=== PATIENT | male | born 1950 | race Caucasian/White ===

== ENCOUNTER → 2017-11-13 | Outpatient (CLI) | payer MEDICARE, OTHER ==
[2017-11-13 16:33] LABS: Appearance,Urine Clear (Clear); Bilirubin,Urine Negative (Negative); Blood,Urine Negative (Negative); Color,Urine Yellow; Glucose,Urine (UA) Negative (Negative); Ketones,Urine Negative (Negative); Leukocyte Esterase,Urine Negative (Negative); Protein,Urine Negative (Negative); Specific Gravity,Urine 1.012 (1.001-1.035); Urobilinogen,Urine <2.0 mg/dL (<2.0)
[2017-11-13 16:34] LABS: Anion Gap 7 mmol/L; Blood Urea Nitrogen 13 mg/dL (9-20); Calcium 9.7 mg/dL (8.4-10.2); Carbon Dioxide 29 mmol/L (22-30); Chloride 103 mmol/L (98-107); Glucose 98 mg/dL (74-99); Sodium 139 mmol/L (137-145)
[2017-11-13 16:50] LABS: Basophils % (A) 1 %; Eosinophils # (A) 0.3 k/uL (0-0.7); Eosinophils % (A) 5 %; HCT 42.4 % (39.0-53.0); HGB 14.3 gm/dL (13.0-17.5); Lymphocytes # (A) 1.6 k/uL (1.0-4.8); Lymphocytes % (A) 28 %; MCH 31.7 pg (25.0-35.0); MCHC 33.7 g/dL (31.0-37.0); MCV 94.2 fL (80.0-100.0); Mean Platelet Volume 7.3; Monocytes # (A) 0.5 k/uL (0-1.0); Monocytes % (A) 9 %; Neutrophils # (A) 3.2 k/uL (1.3-7.7); Neutrophils % (A) 55 %; Platelet Count 301 k/uL (150-450); WBC 5.7 k/uL (3.8-10.6)
== END | disposition home or self-care (01) ==
LOC: LABPAT 15:47
PROVIDERS: ATTEND Urology
DX: Z01.812 Encounter for preprocedural laboratory examination (principal); Z01.810 Encounter for preprocedural cardiovascular examination; E78.5 Hyperlipidemia, unspecified; C61 Malignant neoplasm of prostate; R31.29 Other microscopic hematuria; R53.83 Other fatigue
CPT/HCPCS: 36415; 80048; 81003; 85025; 86850; 86900; 86901; 87086; 93005

== ENCOUNTER 2017-11-20 10:32 | Day surgery (SDC) | payer MEDICARE, OTHER ==
[2017-11-18 15:18] VITALS: BMI 23.0
[~2017-11-20 10:32] MED LIST: DEXAMETHASONE SOD PHOSPHATE 10 MG/ML 1 ML VIAL IV ONE; HEPARIN SODIUM,PORCINE 5,000 UNIT/ML 1 ML VIAL SQ ONE; HYDROmorphone 0.5 MG/0.5 ML SYRINGE IVP PRN; ONDANSETRON 4 MG/2 ML VIAL IVP ONE; ceFAZolin IN SWFI 2 GM/20 ML SYRINGE IVP ONE
[2017-11-20] MEDS ORDERED: LIDOCAINE 1% 20 ML VIAL (10MG/ML) FOR IV START INTRADERMA ONE (11:15)
[2017-11-20] MEDS: LACTATED RINGERS 1,000 ML IV SCH ×2 (11:19→11:20)
[2017-11-20] MEDS ORDERED: MIDAZOLAM 2 MG/2 ML VIAL IV ONE (11:23)
[2017-11-20] MEDS ORDERED: GLYCOPYRROLATE 0.2 MG/ML 2 ML VIAL ONE (12:33)
[2017-11-20] MEDS ORDERED: MIDAZOLAM 2 MG/2 ML VIAL ONE (12:33)
[2017-11-20] MEDS ORDERED: HYDROmorphone (PF) 1 MG/ML ONE (12:33)
[2017-11-20] MEDS ORDERED: SUCCINYLCHOLINE CHLORIDE 100 MG/5 ML SYR IV ONE (12:33)
[2017-11-20] MEDS ORDERED: fentaNYL (PF) 50 MCG/ML 2 ML AMP ONE (12:33)
[2017-11-20] MEDS ORDERED: NEOSTIGMINE 1 MG/ML 10 ML VIAL ONE (12:33)
[2017-11-20] MEDS ORDERED: LIDOCAINE 1% INJ 10MG/ML (20 ML MDV) ONE (12:33)
[2017-11-20] MEDS ORDERED: PROPOFOL 10 MG/ML 20 ML VIAL IV ONE (12:33)
[2017-11-20] MEDS ORDERED: ROCURONIUM BROMIDE 10 MG/ML 10 ML VIAL IV ONE (12:33)
[2017-11-20] MEDS ORDERED: ePHEDrine SULFATE/0.9% NACL/PF 50 MG/5 ML SYRINGE IV ONE (12:33)
[2017-11-20] MEDS ORDERED: BUPIVACAINE (PF) 0.5% 30 ML VIAL SQ ONE (12:58)
[2017-11-20] MEDS ORDERED: LACTATED RINGERS 1,000 ML IV ONE (15:59)
--- NOTE | 2017-11-20 16:41 | P.OP ---
Date of Procedure: 11/20/17 Preoperative Diagnosis: Adenocarcinoma of the Prostate, Clinical Stage [id number] Postoperative Diagnosis: Same Procedure(s) Performed: Right Nerve Sparing Robotic-assisted Laparoscopic Prostatectomy (RALP) with Bilateral Pelvic Lymphadenectomy Anesthesia: DORITA Surgeon: Handy Sarmiento Estimated Blood Loss (ml): 100 IV fluids (ml): 1,700 Pathology: other (Prostate, seminal vesicles, bilateral pelvic lymph nodes) Condition: stable Disposition: PACU Indications for Procedure: The patient is a 67-year-old male with recently diagnosed intermediate risk prostate cancer. All 6 left-sided biopsies showed [place] 7 adenocarcinoma, and one right-sided biopsy showed a small focus of [place] 6 adenocarcinoma. I had a lengthy discussion with the patient, and he has elected to undergo a right nerve-sparing RALP with (B) PLND. He understands the likelihood of postoperative erectile dysfunction despite preservation of the right neurovascular bundle. He also understands the possible need for adjuvant therapy. Operative Findings: Extensive pelvic scarring. Description of Procedure: The patient was taken in the operating room and placed in the dorsal lithotomy position, with his legs supported in Benson stirrups. He was carefully positioned on a beanbag for stability. The abdomen and external genitalia were prepped and draped sterilely. A Meier catheter was inserted. The Veress needle was passed through the anterior abdominal wall immediately cephalad to the umbilicus, and insufflation was performed to a pressure of 20 mm Hg. Once insufflation was performed, the Veress needle was removed and a supraumbilical incision was made, through which a 12 mm camera port was placed. Under camera guidance, 3 8 mm robotic ports were placed, 2 on the left and one on the right. An additional 12 mm port was placed on the right lateral side for use as an assistant professor of geography port. A 5 mm port was placed to the right of the camera port for suction. The patient was placed in Trendelenburg position, and docking was then performed to the da Carlos system utilizing a 4-arm approach. The abdomen was examined. An adhesion to the right anterior abdominal wall was taken down. The sigmoid colon was mobilized out of the pelvis. Pelvic adhesions with loops of small bowel were lysed, allowing mobilization of the small bowel out of the pelvis. Loops of small bowel were The peritoneum was incised lateral to the medial umbilical ligaments bilaterally, exposing the pubis. The peritoneum was then incised across the midline, allowing the bladder flap to be taken down. Significant scarring was noted, particularly on the right side, making the perivesical plane somewhat difficult to delineate. The endopelvic fascia was opened bilaterally, and muscular attachments from the urogenital diaphragm were swept away from the prostate. Bilateral pelvic lymphadenectomies were performed in the standard fashion. The peritoneal incisions were extended in a cephalad direction, and the vas deferens were divided bilaterally. Margins of dissection were the bifurcation of the iliac vessels proximally, the circumflex iliac vein distally, the external iliac artery laterally, and the obturator nerve medially. A combination of sharp and blunt dissection was used. Care was taken to avoid any neurovascular injury, and the use of monopolar electrocautery was avoided immediately adjacent to neurovascular structures. The lymphatic package was clipped distally. No enlarged lymph nodes were encountered. There were no complications. The vesical neck was incised transversely, down to the lumen. The Meier catheter was brought out through the anterior vesical neck incision and was used for traction. The posterior aspect of the vesical neck was incised, such that the full-thickness of the vesical neck was divided. The anterior layer of the Denonvilliers fascia was incised, exposing the vas deferens. Each were isolated and divided. Next, each of the seminal vesicles were dissected away from adjacent tissues, and vascular attachments were cauterized and divided. The posterior leaf of Denonvilliers fascia was incised transversely, allowing entry into the plane between the prostate and rectum. With lateral spreading, this plane was developed down to the apex. This exposed the lateral vascular pedicles bilaterally. These were clipped and divided in an antegrade fashion, down to the apex. The use of electrocautery was avoided to prevent thermal damage to the nerves. On the right side, the plane of dissection was immediately adjacent to the prostate to preserve the neurovascular bundle. On the left side, a plane of dissection were prostate in view of the risk of extraprostatic disease. The remaining apical attachments were swept away from the prostate. The dorsal venous complex was incised, as well as periurethral tissue. At this point, only the urethra remained intact. This was transected immediately distal to the prostatic apex using cold scissors. A small amount of rectourethralis muscle was divided, and the specimen was placed within a specimen bag along with the pelvic lymph nodes. The dorsal venous complex was sutured using a V-Loc suture in a running fashion. A second V-Loc suture was then used to place the Jean Claude stitch, incorporating the rhabdosphincter and the edge of Denonvilliers fascia. This allowed the bladder to be taken down to the urethra, leaving the vesical neck immediately adjacent to the urethra. The vesicourethral anastomosis was then performed using a V-Loc suture in a running fashion. After completing the anastomosis, an 18-Mongolian Meier catheter was placed and approximately 150 mL of 0.9 normal saline were instilled into the bladder. No extravasation of irrigant from the vesicourethral anastomosis was noted. Hemostasis was noted at this time to be very good, and it was thus felt that a drain was unnecessary. A small amount of oozing was noted from the vascular pedicles, so Surgicel was placed bilaterally. The patient was returned to the supine position. Undocking was performed, and the specimen bag sutures were passed through the camera port. After removing all the ports and allowing all of the CO2 to be released from the peritoneal cavity, the camera port incision was enlarged to allow removal of the surgical specimen. The fascia of this incision was then closed using 0 Vicryl suture in an interrupted [id number] fashion. Each of the skin incisions were then closed using 4-0 Monocryl suture in a subcuticular fashion. Marcaine was injected at each of the incision sites. Dermabond was applied to each incision. The Meier catheter was connected to gravity drainage. All sponge and needle counts were correct. The patient tolerated the procedure well was taken to the recovery room in stable condition.
[2017-11-20] MEDS ORDERED: MAG HYDROX/AL HYDROX/SIMETH 30 ML CUP PO PRN (16:42)
[2017-11-20] MEDS ORDERED: KETOROLAC 30 MG/ML 1 ML VIAL IVP PRN (16:42)
[2017-11-20] MEDS ORDERED: ACETAMINOPHEN TAB 325 MG TAB PO PRN (16:42)
[2017-11-20] MEDS ORDERED: ONDANSETRON 4 MG/2 ML VIAL IVP PRN (16:42)
[2017-11-20] MEDS ORDERED: LORATADINE-PSEUDOEPH 5-120 MG 1 EACH TAB.ER.12H PO PRN (16:42)
[2017-11-20] MEDS ORDERED: MORPHINE SULFATE 4 MG/ML SYRINGE IVP PRN (16:42)
[2017-11-20] MEDS ORDERED: FLUTICASONE 50MCG/SPRAY NASAL 16GM EA NOSTRIL PRN (16:42)
[2017-11-20] MEDS ORDERED: PSEUDOEPHEDRINE 30 MG TAB PO PRN (16:42)
[2017-11-20 18:04] VITALS: RESP 16
[2017-11-20] MEDS ORDERED: ATORVASTATIN 20 MG TAB PO SCH (21:00)
[2017-11-20] MEDS: DEXTROSE 5%-0.45% NACL 1,000 ML IV SCH ×2 (22:05→22:43)
[2017-11-20] MEDS: HEPARIN SODIUM,PORCINE 5,000 UNIT/ML 1 ML VIAL SQ SCH (22:42)
[2017-11-21] MEDS: DEXTROSE 5%-0.45% NACL 1,000 ML IV SCH ×2 (00:39→14:07)
[2017-11-21] MEDS: HEPARIN SODIUM,PORCINE 5,000 UNIT/ML 1 ML VIAL SQ SCH (08:22)
[2017-11-21] MEDS ORDERED: HYDROcodone/APAP 5-325MG 1 EACH TAB PO PRN ×2 (12:28)
--- NOTE | 2017-11-21 13:05 | P.DS ---
Providers Expected date of discharge: 11/21/17 Attending physician: Handy Sarmiento Primary care physician: Checo Romero MD Hospital Course: On the day of admission, the patient underwent an uncomplicated robotic- assisted llaparoscopic prostatectomy (RALP) and pelvic lymphadenectomy. The right neurovascular bundle was preserved. The postoperative course was unremarkable. He remained afebrile with stable vital signs. The Meier catheter drained well. On the first postoperative day, the abdomen was soft and the incisions were clean and dry. He ambulated and tolerated diet. Procedures: RALP with pelvic lymphadenectomy on 11/20/2017. Patient Condition at Discharge: Good Plan - Discharge Summary New Discharge Prescriptions: New Ciprofloxacin HCl [Cipro] 250 mg PO Q12HR #10 tablet Hydrocodone/Acetaminophen [[place] 5-325] 1 - 2 each PO Q4HR PRN #20 tab PRN Reason: Pain No Action Loratadine-Pseudoeph 5-120 mg [Claritin-D 12 HR] 1 each PO Q12HR PRN PRN Reason: Allergy Symptoms Simvastatin [Zocor] 40 mg PO HS Aspirin [Adult Low Dose Aspirin EC] 81 mg PO DAILY Ubidecarenone [Co Q-10] 200 mg PO DAILY Multivitamins, Thera [Multivitamin (formulary)] 1 tab PO DAILY Triamcinolone Acetonide [Nasacort] 1 spray EA NOSTRIL DAILY PRN PRN Reason: Allergy Symptoms Pseudoephedrine [Sudafed] 30 mg PO DIRECTED PRN PRN Reason: Allergy Symptoms Discharge Medication List Aspirin [Adult Low Dose Aspirin EC] 81 mg PO DAILY 11/18/17 [History] Loratadine-Pseudoeph 5-120 mg [Claritin-D 12 HR] 1 each PO Q12HR PRN 11/18/17 [ History] Multivitamins, Thera [Multivitamin (formulary)] 1 tab PO DAILY 11/18/17 [History ] Pseudoephedrine [Sudafed] 30 mg PO DIRECTED PRN 11/18/17 [History] Simvastatin [Zocor] 40 mg PO HS 11/18/17 [History] Triamcinolone Acetonide [Nasacort] 1 spray EA NOSTRIL DAILY PRN 11/18/17 [ History] Ubidecarenone [Co Q-10] 200 mg PO DAILY 03/05/18 [History] Ciprofloxacin HCl [Cipro] 250 mg PO Q12HR #10 tablet 11/21/17 [Rx] Hydrocodone/Acetaminophen [[place] 5-325] 1 - 2 each PO Q4HR PRN #20 tab 11/21/17 [Rx] Follow up Appointment(s)/Referral(s): Handy Sarmiento MD [STAFF PHYSICIAN] - 11/27/17 Activity/Diet/Wound Care/Special Instructions: Discharge home with Meier. Please provide patient with leg bag and overnight bag, and instruct patient to use both. Okay to shower. Diet as tolerated. No lifting, driving, or strenuous activity. Patient to begin taking Cipro on 2017. Discharge Disposition: HOME SELF-CARE
[2017-11-21 14:07] VITALS: BP 147/77; PULSE 75; TEMP 97.7
== END 2017-11-21 16:10 | disposition home or self-care (01) ==
LOC: OR 10:32 → 3SUR 16:53 → OR 11-21 16:10
PROVIDERS: ATTEND Urology
DX: C61 Malignant neoplasm of prostate (principal); E78.5 Hyperlipidemia, unspecified; N52.9 Male erectile dysfunction, unspecified; Z80.42 Family history of malignant neoplasm of prostate; Z79.82 Long term (current) use of aspirin; Z79.899 Other long term (current) drug therapy; Z91.09 Other allergy status, other than to drugs and biological substances
CPT/HCPCS: 88307; 88309; 55866; 38571; J2250; J1644 ×2; J1100; J2710; J2405; J2001; J3010; J1885; J1170; J0330; J2704; J0690; 86850; 86900; 86901

== ENCOUNTER → 2024-07-08 | Outpatient (CLI) | payer MEDICARE, OTHER ==
[2024-07-08 15:07] LABS: African American GFR (CKD) >90 (>60 ml/min/1.73 sqM); Blood Urea Nitrogen 12 mg/dL (9-20); Non-African American GFR(CKD) >90 (>60 ml/min/1.73 sqM)
--- NOTE | 2024-07-08 20:06 | CT ---
EXAMINATION TYPE: CT urogram wo/w con CT DLP: 1274.3 mGycm, Automated exposure control for dose reduction was used. DATE OF EXAM: 07/08/2024 4:26 PM COMPARISON: . None CLINICAL INDICATION: Male, 74 years old with history of R31.0 GROSS HEMATURIA; PHH, hematuria TECHNIQUE: Urogram with imaging of the abdomen and pelvis. Coronal and sagittal reformats were performed. 2D and 3D reconstructions are performed to assist visualization of the urinary tract on a separate workstat ion. Contrast used:100 mL of Isovue 370 without and with IV Contrast, Oral contrast used: None. FINDINGS: LOWER CHEST: 4 mm right middle lobe pulmonary nodule. GENITOURINARY: RIGHT KIDNEY AND URETER: No calculi. No hydronephrosis or hydroureter. No renal mass or other lesions . No urothelial lesions: no filling defect, dilation, stricture or wall thickening. LEFT KIDNEY AND URETER: No calculi. No hydronephrosis or hydroureter. No renal mass or other lesions. No urothelial lesions: no filling defect, dilation, stricture or wall thickening. URINARY BLADDER: There is a protuberance projecting over the bladder lumen measuring up to 10 x 8 wit h the base measuring up to 14 mm. mm near the right ureteral orifice. REPRODUCTIVE: Postsurgical changes in the prostate gland prostatectomy suggested. ABDOMEN LIVER: Unremarkable. GALLBLADDER AND BILE DUCTS: Unremarkable PANCREAS: Unremarkable. SPLEEN: Unremarkable. ADRENAL GLANDS: Unremarkable. STOMACH AND BOWEL: . No evidence of bowel obstruction. The appendix is normal. PERITONEUM: No evidence of pneumoperitoneum, free fluid, or adenopathy. VASCULATURE: Infrarenal abdominal aortic fusiform dilation up to 3.2 cm. MUSCULOSKELETAL: No acute osseous abnormalities LYMPH NODES: No gross evidence for lymphadenopathy. SOFT TISSUE/ABDOMINAL WALL: Unremarkable IMPRESSION: 1. 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 Direct visualization recommended. Urology consultation recommended. No lymphadenopathy ident ified. 2. No evidence of urolithiasis or renal neoplasm. 3. Infrarenal abdominal aortic fusiform dilation up to 3.2 cm. 4. Right middle lobe 4 mm pulmonary nodule. Consider one-year follow-up to ensure stability. [facility], Workstation: [id number], 07/08/2024 8:04 PM
== END | disposition home or self-care (01) ==
LOC: RADCTMAIN 14:23
PROVIDERS: ATTEND Urology
CPT/HCPCS: 36415; 74178; 74400; 82565; 84520

== ENCOUNTER 2024-07-20 11:53 | Day surgery (SDC) | payer MEDICARE, OTHER ==
[2024-07-17 09:15] VITALS: BMI 24.1
--- NOTE | 2024-07-19 16:12 | P.GSHP ---
History of Present Illness H&P Date: 07/19/24 74 yo male with recent hematuria. Evaluation identified a medium sized bladder tumor on the right lateral trigone. He comes for turbt. His upper tracts are normal. He had a radical prostatectomy in 2018. His latest psa is 0.015 - Constitutional Constitutional: Denies chills, Denies fever - EENT Eyes: denies blurred vision, denies pain Ears, nose, mouth and throat: Denies headache, Denies sore throat - Cardiovascular Cardiovascular: Denies chest pain, Denies shortness of breath - Respiratory Respiratory: Denies cough, Denies 7 - Gastrointestinal Gastrointestinal: Denies abdominal pain, Denies diarrhea, Denies nausea, Denies vomiting - Genitourinary (Female) Genitourinary: Denies dysuria, Denies hematuria - Genitourinary (Male) Genitourinary: Denies dysuria, Denies hematuria - Musculoskeletal Musculoskeletal: Denies myalgias - Integumentary Integumentary: Denies pruritus, Denies rash - Neurological Neurological: Denies numbness, Denies weakness - Psychiatric Psychiatric: Denies anxiety, Denies depression - Endocrine Endocrine: Denies fatigue, Denies weight change Past Medical History Past Medical History: Eye Disorder, Hyperlipidemia Additional Past Medical History / Comment(s): Hx prostate cancer 2018 with surgery. Bilateral Glaucoma. History of Any Multi-Drug Resistant Organisms: None Reported Past Surgical History: Appendectomy, Hernia Repair, Orthopedic Surgery, Prostate Surgery Additional Past Surgical History / Comment(s): Prostatectomy, several hernia repairs, left shoulder surgery. Past Anesthesia/Blood Transfusion Reactions: No Reported Reaction Smoking Status: Never smoker - Past Family History Mother Family Medical History: No Reported History Medications and Allergies Home Medications Medication Instructions Recorded Confirmed Type Aspirin [Adult Low Dose Aspirin EC] 81 mg PO DAILY 11/18/17 07/17/24 History Multivitamins, Thera [Multivitamin 1 tab PO DAILY 11/18/17 07/17/24 History (formulary)] Pseudoephedrine [Sudafed] 30 mg PO DIRECTED PRN 11/18/17 07/17/24 History Ubidecarenone [Co Q-10] 200 mg PO DAILY 11/18/17 07/17/24 History Atorvastatin [Lipitor] 20 mg PO HS 07/17/24 07/17/24 History Azelastine HCl [Astepro] 1 - 2 spray NASAL DAILY 07/17/24 07/17/24 History Brinzolamide/Brimonidine Tart 1 drop BOTH EYES BID 07/17/24 07/17/24 History [Simbrinza 1%-0.2% Eye Drop] Cetirizine HCl/Pseudoephedrine 1 tab PO Q12H PRN 07/17/24 07/17/24 History [Zyrtec-D ER 5 mg-120 mg Tablet] Fexofenadine/Pseudoephedrine 1 tab PO DAILY PRN 07/17/24 07/17/24 History [Oliva-D 24 Hour Tablet] Latanoprost [Latanoprost 0.005%] 1 drop BOTH EYES BID 07/17/24 07/17/24 History Montelukast [Singulair] 10 mg PO QAM 07/17/24 07/17/24 History Timolol 0.5% Ophth Soln [Timoptic 1 drop BOTH EYES HS 07/17/24 07/17/24 History 0.5% Ophth Soln] diphenhydrAMINE [Benadryl] 25 - 50 mg PO DIRECTED PRN 07/17/24 07/17/24 History traZODone HCL [Desyrel] 50 mg PO HS PRN 07/17/24 07/17/24 History Allergies Allergy/AdvReac Type Severity Reaction Status Date / Time mold,dust mites Allergy Unknown Uncoded 07/17/24 08:35 Surgical - Exam - General well developed, well nourished, no distress - Eyes normal ocular movement, no icteric - ENT no hearing loss, no congestion - Neck no masses, trachea midline - Respiratory normal respiratory effort, clear to auscultation - Abdomen Abdomen: soft, non tender, no guarding, no rigid, no rebound - Integumentary no rash, no abnormal pigmentation - Neurologic no disoriented, no combative - Psychiatric oriented to time, oriented to person, oriented to place, speech is normal, me yan intact Results - Imaging CT scan - abdomen: report reviewed, image reviewed CT scan - pelvis: report reviewed, image reviewed Assessment and Plan Assessment: Impression: bladder tumor with hematuria. History of prostate cancer treated with radical prostatectomy Plan: Turbt
[~2024-07-20 11:53] MED LIST changes: -DEXAMETHASONE SOD PHOSPHATE 10 MG/ML 1 ML VIAL IV ONE; -HEPARIN SODIUM,PORCINE 5,000 UNIT/ML 1 ML VIAL SQ ONE; -HYDROmorphone 0.5 MG/0.5 ML SYRINGE IVP PRN; -ONDANSETRON 4 MG/2 ML VIAL IVP ONE; +Pre Op ABX Message 1 EACH MISC MISCELLANE ONE; -ceFAZolin IN SWFI 2 GM/20 ML SYRINGE IVP ONE
[2024-07-20] MEDS: IV FLUID CONTINUATION 1,000 ML IV ONE (12:43)
[2024-07-20] MEDS: LACTATED RINGERS 1,000 ML IV SCH (12:47)
[2024-07-20] MEDS: DEXAMETHASONE SOD PHOSPHATE 4 MG/ML 1 ML VIAL IVP STA (13:14)
[2024-07-20] MEDS: ONDANSETRON 4 MG/2 ML VIAL IVP STA (13:14)
[2024-07-20] MEDS ORDERED: MIDAZOLAM 2 MG/2 ML VIAL ONE (14:31)
[2024-07-20] MEDS ORDERED: PROPOFOL 10 MG/ML 20 ML VIAL IV ONE (14:31)
[2024-07-20] MEDS ORDERED: SUCCINYLCHOLINE CHLORIDE 200 MG/10 ML VIAL IV ONE (14:31)
[2024-07-20] MEDS ORDERED: fentaNYL (PF) 50 MCG/ML 2 ML AMP ONE (14:31)
[2024-07-20] MEDS ORDERED: LIDOCAINE 1% INJ 10MG/ML (20 ML MDV) ONE (14:31)
[2024-07-20] MEDS: LACTATED RINGERS 1,000 ML IV ONE (14:59)
--- NOTE | 2024-07-20 15:21 | P.OP ---
Date of Procedure: 07/20/24 Preoperative Diagnosis: recurrent bladder cancer Postoperative Diagnosis: same Procedure(s) Performed: TURBT, medium, 2.5-3 cm, right Anesthesia: VAMSHIA Surgeon: Reagan Sue Estimated Blood Loss (ml): 0 Pathology: other (bladder tumor) Condition: stable Disposition: PACU Indications for Procedure: patient is 74. He has a history of superficial bladder cancer many years ago. Gross hematuria. Evaluation identified a pedunculated tumor on the right hemitrigone lateral to the orifice probably 3 cm in diameter Description of Procedure: patient brought operating suite. Given a general anesthetic. Placed lithotomy position with a sterile prep and drape. Under direct vision the 25-Marshallese sheath direct vision obturator and Foroblique lenses introduced in the urethra is normal the prostatic urethra is absent from previous radical cystectomy. The bladder carbajal trabeculated. On the right hemitrigone lateral the ureteral orifices a pedunculated tumor about 3 cm in diameter. With the Owens resectoscope and Foroblique lens I resect the tumor from lateral to medial down to bladder tumor base. Sent to pathology. The base cauterized thoroughly. I inspect the rest the bladder there is no remaining tumor. I removed the resectoscope and introduce an 18-Marshallese Meier catheter in the bladder with clear urine return. The patient is awake and returned recovery in good condition. Be discharged home upon recovery and found the office in one week.
[2024-07-20 15:32] VITALS: TEMP 97
[2024-07-20 15:55] VITALS: RESP 20
[2024-07-20 17:02] VITALS: BP 148/63; PULSE 82
== END 2024-07-20 17:04 | disposition home or self-care (01) ==
LOC: OR 11:53
PROVIDERS: ATTEND Urology
DX: C67.9 Malignant neoplasm of bladder, unspecified (principal); E78.5 Hyperlipidemia, unspecified; Z85.46 Personal history of malignant neoplasm of prostate; Z90.79 Acquired absence of other genital organ(s); Z90.49 Acquired absence of other specified parts of digestive tract; Z79.82 Long term (current) use of aspirin; Z79.02 Long term (current) use of antithrombotics/antiplatelets; Z79.899 Other long term (current) drug therapy
CPT/HCPCS: 52235; J1100; J2405; 88307

== ENCOUNTER 2025-04-14 21:00 | Emergency (ER) | payer MEDICARE, OTHER ==
--- NOTE | 2025-04-14 21:22 | ED ---
Abdominal Pain HPI <Timothy Ford - Last Filed: 04/14/25 22:00> - General Source: patient, RN notes reviewed, old records reviewed ([place] records) Mode of arrival: EMS Limitations: no limitations <Jeanie Silverio - Last Filed: 04/15/25 02:48> - General Chief Complaint: Abdominal Pain Stated Complaint: Small Bowel Obstruction Time Seen by Provider: 04/14/25 21:19 - History of Present Illness Initial Comments: 75-year-old male presented to the ER transfer from [facility] for evaluation of small bowel obstruction. He reports around 10:30 AM today he started to experience an achy centralized abdominal discomfort. He reports this progressively worsened throughout the day which prompted patient to be seen at [place]. He reports upon arrival to [facility] he began experiencing nausea and vomiting. He denies any hematemesis, coffee-ground emesis, diarrhea or constipation. He states his last bowel movement was prior to arrival at [facility]. No flatulence. He denies any fevers or chills but states he was started on doxycycline 6 days ago for upper respiratory infection. Patient does have a history of bladder and cancer not currently on chemo or radiation. Patient had prostatectomy in November [address] Sarmiento. Patient did undergo urostomy at in January [address] Sosa at [facility]. Patient currently rating his pain a 2 out of 10 and denies any current nausea or vomiting after IV medications at [place]. Patient denies any dizziness, lightheadedness, chest pain or shortness of breath. (Jeanie Silverio) - Related Data Home Medications Medication Instructions Recorded Confirmed Aspirin [Adult Low Dose Aspirin EC] 81 mg PO DAILY 11/18/17 07/17/24 Multivitamins, Thera [Multivitamin 1 tab PO DAILY 11/18/17 07/17/24 (formulary)] Pseudoephedrine [Sudafed] 30 mg PO DIRECTED PRN 11/18/17 07/20/24 Ubidecarenone [Co Q-10] 200 mg PO DAILY 11/18/17 07/17/24 Atorvastatin [Lipitor] 20 mg PO HS 07/17/24 07/20/24 Azelastine HCl [Astepro] 1 - 2 spray NASAL DAILY 07/17/24 07/20/24 Brinzolamide/Brimonidine Tart 1 drop BOTH EYES BID 07/17/24 07/20/24 [Simbrinza 1%-0.2% Eye Drop] Cetirizine HCl/Pseudoephedrine 1 tab PO Q12H PRN 07/17/24 07/20/24 [Zyrtec-D ER 5 mg-120 mg Tablet] Fexofenadine/Pseudoephedrine 1 tab PO DAILY PRN 07/17/24 07/20/24 [Oliva-D 24 Hour Tablet] Latanoprost [Latanoprost 0.005%] 1 drop BOTH EYES BID 07/17/24 07/20/24 Montelukast [Singulair] 10 mg PO QAM 07/17/24 07/20/24 Timolol 0.5% Ophth Soln [Timoptic 1 drop BOTH EYES HS 07/17/24 07/20/24 0.5% Ophth Soln] diphenhydrAMINE [Benadryl] 25 - 50 mg PO DIRECTED PRN 07/17/24 07/20/24 traZODone HCL [Desyrel] 50 mg PO HS PRN 07/17/24 07/20/24 Allergies Allergy/AdvReac Type Severity Reaction Status Date / Time No Known Allergies Allergy Verified 07/20/24 13:13 Review of Systems ROS Other: All systems not noted in ROS Statement are negative. <Timothy Ford - Last Filed: 04/14/25 22:00> ROS Other: All systems not noted in ROS Statement are negative. <Jeanie Silverio - Last Filed: 04/15/25 02:48> ROS Statement: Those systems with pertinent positive or pertinent negative responses have been documented in the HPI. Past Medical History Past Medical History: Eye Disorder, Hyperlipidemia Additional Past Medical History / Comment(s): Hx prostate cancer 2018 with surgery. Bilateral Glaucoma. Bladder cancer History of Any Multi-Drug Resistant Organisms: None Reported Past Surgical History: Appendectomy, Hernia Repair, Orthopedic Surgery, Prostate Surgery Additional Past Surgical History / Comment(s): Prostatectomy, several hernia repairs, left shoulder surgery. Past Anesthesia/Blood Transfusion Reactions: No Reported Reaction Past Psychological History: No Psychological Hx Reported Smoking Status: Never smoker - Past Family History Mother Family Medical History: No Reported History <Jeanie Silverio - Last Filed: 04/15/25 02:48> General Exam Limitations: no limitations General appearance: alert, in no apparent distress Respiratory exam: Present: normal lung sounds bilaterally. Absent: respiratory distress, wheezes, rales, rhonchi, stridor Cardiovascular Exam: Present: regular rate, normal rhythm, normal heart sounds. Absent: systolic murmur, diastolic murmur, rubs, gallop, clicks GI/Abdominal exam: Present: rigid, hypoactive bowel sounds, other (Urostomy right lower quadrant. No rebound or guarding) Extremities exam: Present: normal inspection, full ROM, normal capillary refill. Absent: tenderness, pedal edema, joint swelling, calf tenderness Neurological exam: Present: alert, oriented X3, CN II-XII intact Skin exam: Present: warm, dry, intact, normal color. Absent: rash <Jeanie Silverio - Last Filed: 04/15/25 02:48> Course <Jeanie Silverio - Last Filed: 04/15/25 02:48> Vital Signs 04/14/25 04/14/25 04/14/25 21:02 22:20 23:38 Temperature 98.2 F 98.2 F Pulse Rate 96 92 98 Respiratory 16 19 19 Rate Blood Pressure 132/85 143/101 140/100 O2 Sat by Pulse 96 97 98 Oximetry 04/15/25 01:53 Temperature 97.4 F L Pulse Rate 90 Respiratory 18 Rate Blood Pressure 126/80 O2 Sat by Pulse 98 Oximetry - Reevaluation(s) Reevaluation #1: 04/14/25 21:35 Case discussed with on-call general surgeon, Dr. Goldstein. He is refusing admission as patient had recent urostomy he is recommending patient be transported back to [facility]. (Jeanie Silverio) Reevaluation #2: 04/14/25 22:20 Case discussed with [facility] who accepts transfer. Accepting physician Dr. Hoyt (Jeanie Silverio) Medical Decision Making - Lab Data Result diagrams: 04/14/25 21:39 04/14/25 22:17 - EKG Data -: EKG Interpreted by [place] - Radiology Data Radiology results: report reviewed ([place] CT abdomen pelvis reviewed from 04 14 25.) <Jeanie Silverio - Last Filed: 04/15/25 02:48> - Medical Decision Making Was pt. sent in by a medical professional or institution (, PA, EDUCATION COUNSELOR, urgent care, hospital, or long-term...) When possible be specific @ -Patient transferred from [facility] for further evaluation of small bowel obstruction. Did you speak to anyone other than the patient for history (EMS, parent, family, police, friend...)? What history was obtained from this source @ -No Did you review nursing and triage notes (agree or disagree)? Why? @ -I reviewed and agree with nursing and triage notes Were old charts reviewed (outside hosp., previous admission, EMS record, old EKG, old radiological studies, urgent care reports/EKG's, long-term records)? Report findings @ -I reviewed records from [facility] on 04 14 25. Laboratory studies obtained markable for WBC 8.9, lactic 0.9, hemoglobin 14.5. CT abdomen pelvis concerning for small bowel obstruction with multiple transition points in the mid abdomen. A single loop is more focally distended with 2 adjacent transition points possibly representing a developing focal small bowel volvulus. Small free fluid in pelvis. No evidence of bowel ischemia. Patient is status postcholecystectomy and prostatectomy with urostomy and ileal conduit. 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 They attempted to transfer patient to [facility] as patient had recent urostomy placement there but given capacity they refused and patient was ultimately transferred to [facility]. Differential Diagnosis (chest pain, altered mental status, abdominal pain women, abdominal pain men, vaginal bleeding, weakness, fever, dyspnea, syncope, headache, dizziness, GI bleed, back pain, seizure, CVA, palpatations, mental health, musculoskeletal)? @ -Differential Abdominal Pain Men: Appendicitis, cholecystitis, diverticulosis, ischemic bowel, pancreatitis, hepatitis, UTI, gastroenteritis, AAA, incarcerated hernia, bowel obstruction, constipation, inflammatory bowel, hepatitis, peptic ulcer disease, splenic infarction, perforated viscus, testicular torsion, this is not meant to be an all-inclusive list EKG interpreted by me (3pts min.). @ -As above X-rays interpreted by me (1pt min.). @ -None done CT interpreted by me (1pt min.). @ -None done U/S interpreted by me (1pt. min.). @ -None done What testing was considered but not performed or refused? (CT, X-rays, U/S, labs)? Why? @ -None What meds were considered but not given or refused? Why? @ -None Did you discuss the management of the patient with other professionals (professionals i.e. Dr., PA, EDUCATION COUNSELOR, lab, RT, psych nurse, social media job titles, senior supply chain analyst, teacher, loan workout officer, nurse outreach case manager)? Give summary @ -Case discussed with on-call general surgery, Dr. Goldstein. He refused admission stating given patient's recent urostomy procedure he is recommending transfer back to [facility]. Case also discussed with [facility] transfer team who accepts transfer. Accepting physician Dr. Hoyt. Was smoking cessation discussed for >3mins.? @ -No Was critical care preformed (if so, how long)? @ -No Were there social determinants of health that impacted care today? How? (Homelessness, low income, unemployed, alcoholism, drug addiction, transportation, low edu. Level, literacy, decrease access to med. care, [facility], rehab)? @ -No Was there de-escalation of care discussed even if they declined (Discuss DNR or withdrawal of care, Hospice)? DNR status @ -No What co-morbidities impacted this encounter? (DM, HTN, Smoking, COPD, CAD, Cancer, CVA, ARF, Chemo, Hep., AIDS, mental health diagnosis, sleep apnea, morbid obesity)? @ -History of bladder and prostate cancer with prior cystectomy in 2018. No current chemo or radiation. Urostomy January 2025./ HLD Was patient admitted / discharged? Hospital course, mention meds given and route, prescriptions, significant lab abnormalities, going to OR and other pertinent info. @ -Transferred. 75-year-old male presented to ER transfer from [facility] for further evaluation of small bowel obstruction. Chart reviewed from [facility] remarkable for WBC 8.02, lactic 0.9. CT Abdo pelvis showing a small bowel obstruction with multiple transition points in the mid abdomen. A single loop is more focally distended with 2 adjacent transition poi nts possibly representing developing focal small bowel volvulus. Small free fluid in pelvis. No evidence of bowel ischemia. 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 [facility] attempted to transfer patient to [facility] but given [facility]'s ER capacity and possible delay in transfer patient was ultimately transferred here for further evaluation. Upon arrival and my examination, vital signs stable and patient resting comfortably on stretcher in no signs of acute distress. Abdominal exam remarkable for hypoactive bowel sounds with a rigid abdomen no focal abdominal tenderness. Urostomy to right lower quadrant. Case discussed with on-call general surgeon, Dr. Goldstein. He refuses admission as patient had recent urostomy placed and he is recommending transfer back to [facility]. Case then discussed with [facility] transfer center who accept transfer accepting physician, Dr. Hoyt. Patient provided with IV Dilaudid for pain control in the emergency department. N.p.o. diet. Patient is agreeable and st able for transfer and will be transferred via EMS to [facility] for further evaluation and treatment. Case discussed with ED attending, Dr. Ford, who also evaluated patient. Undiagnosed new problem with uncertain prognosis? @ -No Drug Therapy requiring intensive monitoring for toxicity (Heparin, Nitro, Insulin, Cardizem)? @ -No Were any procedures done? @ -No Diagnosis/symptom? @ -Small bowel obstruction rule out developing volvulus/ hx bladder and prostate cancer Acute, or Chronic, or Acute on Chronic? @ -Acute Uncomplicated (without systemic symptoms) or Complicated (systemic symptoms)? @ -Complicated Side effects of treatment? @ -No Exacerbation, Progression, or Severe Exacerbation? @ -No Poses a threat to life or bodily function? How? (Chest pain, [place], [place], pneumonia, PE, COPD, DKA, ARF, appy, cholecystitis, CVA, Diverticulitis, Homicidal, Suicidal, threat to staff... and all critical care pts) @ -Yes can lead to bowel perforation which can be life-threatening. (Jeanie Silverio) - Lab Data Lab Results 04/14/25 04/14/25 04/14/25 Range/Units 21:39 22:17 22:36 WBC 8.02 (4.50-10.00) 10*3/uL RBC 4.38 L (4.40-5.60) 10*6/uL Hgb 14.1 (13.0-17.0) g/dL Hct 41.0 (39.6-50.0) % MCV 93.6 (80.0-97.0) fL MCH 32.2 H (27.0-32.0) pg MCHC 34.4 (32.0-37.0) g/dL Plt Count 284 (140-440) 10*3/uL MPV 9.3 L (9.5-12.2) fL Immature Gran % (Auto) 0.5 % Neutrophils % 82.0 % Lymphocytes % 12.1 % Monocytes % 4.6 % Eosinophils % 0.4 % Basophils % 0.4 % Immature Gran # 0.04 (0.00-0.04) 10*3/uL Neutrophils # 6.58 (1.80-7.70) 10*3/uL Lymphocytes # 0.97 (0.90-5.00) 10*3/uL Monocytes # 0.37 (0.20-1.00) 10*3/uL Eosinophils # 0.03 L (0.04-0.35) 10*3/uL Basophils # 0.03 (0.00-0.10) 10*3/uL Immature Plt Fraction 0.9 L (1.1-6.1) % Sodium 137 (137-145) mmol/L Potassium 3.9 (3.5-5.1) mmol/L Chloride 107 (98-107) mmol/L Carbon Dioxide 19 L (22-30) mmol/L Anion Gap 11 mmol/L BUN 13 (9-20) mg/dL Creatinine 0.61 L (0.66-1.25) mg/dL Est GFR (CKD-EPI)AfAm >90 (>60 ml/min/1.73 sqM) Est GFR (CKD-EPI)NonAf >90 (>60 ml/min/1.73 sqM) Glucose 109 H (74-99) mg/dL Plasma Lactic Acid Jamshid 0.6 L (0.7-2.0) mmol/L Calcium 8.4 (8.4-10.2) mg/dL Total Bilirubin 0.6 (0.2-1.3) mg/dL AST 30 (17-59) U/L ALT 22 (4-49) U/L Alkaline Phosphatase 93 (38-126) U/L Total Protein 5.7 L (6.3-8.2) g/dL Albumin 3.1 L (3.5-5.0) g/dL - EKG Data EKG Comments: EKG taken at 21: 43 showing sinus rhythm. Right bundle branch block. No ST segment elevations or depressions. Ventricular rate 87, ME interval 160, QRS duration 146, QT/QTc 415/460. (Jeanie Silverio) Disposition <Timothy Ford - Last Filed: 04/14/25 22:00> Time of Disposition: 22:27 - Out of Hospital Transfer - Req. Specs Out of Hospital Transfer - Requested Specifics: Other Emergency Center ([facility]) <Jeanie Silverio - Last Filed: 04/15/25 02:48> Clinical Impression: Small bowel obstruction Disposition: OTHER INSTITUTION NOT DEFINED Condition: Stable Referrals: Checo Romero MD [Primary Care Provider] - 1-2 days
[2025-04-14 21:56] LABS: Basophils # (A) 0.03 10*3/uL (0.00-0.10); Basophils % (A) 0.4 %; Eosinophils # (A) 0.03 10*3/uL (0.04-0.35); Eosinophils % (A) 0.4 %; HCT 41.0 % (39.6-50.0); HGB 14.1 g/dL (13.0-17.0); Immature Platelet Fraction 0.9 % (1.1-6.1); Lymphocytes # (A) 0.97 10*3/uL (0.90-5.00); Lymphocytes % (A) 12.1 %; MCH 32.2 pg (27.0-32.0); MCHC 34.4 g/dL (32.0-37.0); MCV 93.6 fL (80.0-97.0); Monocytes # (A) 0.37 10*3/uL (0.20-1.00); Monocytes % (A) 4.6 %; Neutrophils # (A) 6.58 10*3/uL (1.80-7.70); Neutrophils % (A) 82.0 %; Platelet Count 284 10*3/uL (140-440); RBC 4.38 10*6/uL (4.40-5.60); RDW 12.1 % (11.5-14.5); WBC 8.02 10*3/uL (4.50-10.00)
[2025-04-14 22:58] LABS: ALT 22 U/L (4-49); African American GFR (CKD) >90 (>60 ml/min/1.73 sqM); Albumin 3.1 g/dL (3.5-5.0); Anion Gap 11 mmol/L; Blood Urea Nitrogen 13 mg/dL (9-20); Calcium 8.4 mg/dL (8.4-10.2); Carbon Dioxide 19 mmol/L (22-30); Chloride 107 mmol/L (98-107); Glucose 109 mg/dL (74-99); Non-African American GFR(CKD) >90 (>60 ml/min/1.73 sqM); Sodium 137 mmol/L (137-145); Total Protein 5.7 g/dL (6.3-8.2)
[2025-04-14 22:59] LABS: AST 30 U/L (17-59); Alkaline Phosphatase 93 U/L (38-126); Potassium 3.9 mmol/L (3.5-5.1)
[2025-04-14] MEDS: SODIUM CHLORIDE 0.9% 500 ML 500 ML IV ONE (23:34)
[2025-04-14] MEDS: HYDROmorphone 0.5 MG/0.5 ML SYRINGE IVP STA (23:37)
[2025-04-15 01:57] VITALS: BP 126/80; PULSE 90; RESP 18; TEMP 97.4
== END 2025-04-15 02:24 | disposition other institution (70) ==
LOC: EC 21:00
DX: K56.609 Unspecified intestinal obstruction, unspecified as to partial versus complete obstruction (principal); Z85.51 Personal history of malignant neoplasm of bladder; Z90.79 Acquired absence of other genital organ(s)
CPT/HCPCS: 36415; 93005; 80053; 83605; 85025; 99285; 96374; 96361; J1171